=== PATIENT | female | born 2000 | race Two or more races ===

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

== ENCOUNTER 2021-05-05 04:22 | Emergency (ER) | payer MEDICAID ==
[~2021-05-05] VITALS: Ht 160 cm; Wt 61.2 kg
[2021-05-05 05:09] VITALS: BP 105/62
[2021-05-05] MEDS ORDERED: cefTRIAXone SOD 1,000 MG VL IM ONE (05:30)
[2021-05-05] MEDS ORDERED: LIDOCAINE VISCOUS 2% 15ML UD PO ONE (05:30)
[2021-05-05] MEDS ORDERED: ACETAMINOPHEN 500 MG TAB PO ONE (05:30)
[2021-05-05] MEDS ORDERED: IBUPROFEN 800 MG TAB PO ONE (05:30)
== END 2021-05-05 05:44 | disposition home or self-care (01) ==
LOC: ER 04:22
DX: J03.80 Acute tonsillitis due to other specified organisms (principal); B96.89 Other specified bacterial agents as the cause of diseases classified elsewhere; R05 Cough
CPT/HCPCS: 96372; 99284; J0696

== ENCOUNTER 2021-11-17 21:59 | Emergency (ER) | payer MEDICAID ==
[~2021-11-17] VITALS: Ht 162.6 cm; Wt 61.2 kg
[2021-11-17 21:59] VITALS: BP 112/69
[2021-11-17] MEDS ORDERED: IPRATROPIUM BROM 0.5 MG/2.5ML INH SOL NEB ONE (22:45)
[2021-11-17] MEDS ORDERED: ALBUTEROL SULF 2.5 MG/0.5ML(0.5%) NEB SOLN NEB ONE (22:45)
== END 2021-11-18 02:08 | disposition left against medical advice (07) ==
LOC: ER 22:02
DX: J45.909 Unspecified asthma, uncomplicated (principal); Z53.21 Procedure and treatment not carried out due to patient leaving prior to being seen by health care provider
CPT/HCPCS: 71045; 94644; J7644

== ENCOUNTER 2022-02-11 19:01 | Emergency (ER) | payer MEDICAID ==
[~2022-02-11] VITALS: Ht 160 cm; Wt 62.1 kg
[2022-02-11 19:01] VITALS: BP 98/67
== END 2022-02-11 20:57 | disposition left against medical advice (07) ==
LOC: ER 19:01
DX: R07.9 Chest pain, unspecified (principal); Z53.21 Procedure and treatment not carried out due to patient leaving prior to being seen by health care provider
CPT/HCPCS: 93005

== ENCOUNTER 2025-05-26 04:06 | Emergency (ER) | payer MEDICAID ==
[~2025-05-26] VITALS: Ht 162.6 cm; Wt 50.0 kg
[2025-05-26 04:21] VITALS: BP 95/56; PULSE 98; TEMP 98.2
[2025-05-26] MEDS ORDERED: ALBUTEROL SULF 2.5 MG/0.5ML(0.5%) NEB SOLN NEB ONE (04:30)
--- NOTE | 2025-05-26 04:33 | ED.PDOC ---
SOB-HPI HPI Comments 24-year-old female who came to ER for shortness a breath. History of asthma. Past 2 days patient has been having cough, congestion, in progressively worsening shortness of breath. Inhalers taken offered slight relief. Upon arrival, patient wheezing, saturating 91% on room air. REVIEW OF SYSTEMS: No fever, no chills, or fatigue HEENT: No sore throat, no earache, no congestion, no neck pain. Cardiac: No chest pain. No palpitations. Lungs: (+) shortness of breath, (+) cough. GI: No nausea, no vomiting, no diarrhea, no constipation, no abdominal pain : No dysuria, frequency, or urgency. No hematuria. Musculoskeletal: No joint pain , no joint swelling, no extremity edema. Skin: No rash, no itching. Neuro: No headache, no dizziness, no weakness PHYSICAL EXAM: General: Awake, alert and oriented. No acute distress. Skin: Skin in warm, dry and intact without rashes or lesions. HEENT: The head is normocephalic and atraumatic. Conjunctivae are clear without exudates or hemorrhage. Sclera is non-icteric. Neck: Normal range of motion. No JVD. Cardiac: Regular rate Respiratory: No signs of respiratory distress. No Stridor. Expiratory wheezes bilaterally. Extremities: Upper and lower extremities are atraumatic in appearance without deformity. Neurological: The patient is awake, alert and oriented to person, place, and time with normal speech. Speech is clear. There is no facial asymmetry. Psychiatric: Appropriate mood and affect. Good judgement and insight. 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 Was a procedure done?: No Differential Dx Differential Diagnosis: Asthma, Bronchitis, Pneumonia, Respiratory Distress X-Ray, Labs, Meds, VS Vital Signs Date Time Temp Pulse Resp B/P (MAP) Pulse Ox O2 Delivery O2 Flow Rate FiO2 05/26/25 05:09 96 05/26/25 04:49 22 95 Nasal Cannula* 2 28 05/26/25 04:21 98.2 98 20 95/56 98 98.2 05/26/25 04:06 Room Air 05/26/25 04:06 98 20 95/56 (69) 95 Current Medications Medications (Trade) Dose Ordered Sig/Mukul Route Start Time Stop Time Status Last Admin Ipratropium Mccune (Atrovent Medneb) 0.5 mg ONCE ONCE NEB 05/26/25 04:30 05/26/25 04:31 DC 05/26/25 04:49 Dexamethasone Sodium Phosphate (Decadron Injection) 10 mg ONCE ONCE IM 05/26/25 04:30 05/26/25 04:31 DC 05/26/25 05:06 Albuterol (Ventolin Medneb) 10 mg ONCE ONCE NEB 05/26/25 04:30 05/26/25 04:31 DC 05/26/25 04:49 PATIENT: TATA TAPIA ACCT: [id number] UNIT: [id number] : 2000 LOC: ER ROOM / BED: / AGE / SEX: 24 / F ADM STATUS: REG ER SERVICE [id number] ORDERING PHYSICIAN: MELODY BUSTOS MD PROCEDURE(s): CXR1 - CHEST XRAY 1 VIEW REASON: Shortness of breath ORDER NUMBER(s): [id number], ACCESSION NUMBER(s): [id number] CHEST RADIOGRAPH Indication: Shortness of breath Technique: Single frontal view of the chest was obtained COMPARISON: CHEST PORTABLE on DOS: 11/17/21 FINDINGS: Lines and Tubes: None Lungs: Clear Pleura: No effusion. No pneumothorax. Cardiomediastinal contours: Unremarkable Bones: Unremarkable IMPRESSION: 1. No acute disease. ATED BY: GENE PRETTY MD DICTATED DATE/TIME: 05/26/25514 SIGNED BY: GENE PRETTY MD SIGNED DATE/TIME: 05/26/25514 CC: Time of 1ST Reevaluation: 04:28 Reevaluation 1ST: Unchanged Patient Education/Counseling: Need For Follow Up Family Education/Counseling: No Family Present SEPSIS Sepsis Screen Physician Orders Chest Xray 1 View (05/26/25 04:17) Vital Signs Date Time Temp Pulse Resp B/P (MAP) Pulse Ox O2 Delivery O2 Flow Rate FiO2 05/26/25 05:09 96 05/26/25 04:49 22 95 Nasal Cannula* 2 28 05/26/25 04:21 98.2 98 20 95/56 98 98.2 05/26/25 04:06 Room Air 05/26/25 04:06 98 20 95/56 (69) 95 Departure 1 Departure Time of Disposition: 05:20 Impression: Primary Impression: Shortness of breath Additional Impression: Asthma exacerbation Disposition: HOME / SELF CARE / HOMELESS Condition: Stable Additional Instructions: ED DISCHARGE INSTRUCTIONS Instructions: Please read all instructions provided in this packet carefully. Although you have been discharged from the Emergency Department, this does not mean that you have a "clean bill of health". No definitive diagnosis for your symptoms has been made today. It is possible that you are in the process of developing a serious illness. This is why you must return to the ED without fail if any new or worsening symptoms (especially if your symptoms include chest pain, trouble breathing, abdominal pain, fever, headache, confusion, trouble seeing, or trouble walking) It is also very important that you see a primary care provider (PCP) within the next 3-5 days to follow up. If you are unable to get an appointment, return to the ED for re-evaluation. SHORTNESS OF BREATH EDUCATION Shortness of breath has many causes. Sometimes conditions such as anxiety can lead to shortness of breath. Some people get mild shortness of breath when they exercise. Trouble breathing also can be a symptom of a serious problem, such as asthma, lung disease, emphysema, heart problems, and pneumonia. If your shortness of breath continues, you may need tests and treatment. Watch for any changes in your breathing and other symptoms. Follow-up care is a dumas part of your treatment and safety. Be sure to make and go to all appointments, and call your doctor if you are having problems. It's also a good idea to know your test results and keep a list of the medicines you take. How can you care for yourself at home? Do not smoke or allow others to smoke around you. If you need help quitting, talk to your doctor about stop-smoking programs and medicines. These can increase your chances of quitting for good. Get plenty of rest and sleep. Take your medicines exactly as prescribed. Call your doctor if you think you are having a problem with your medicine. Find healthy ways to deal with stress. Exercise daily. Get plenty of sleep. Eat regularly and well. When should you call for help? Call 911 anytime you think you may need emergency care. For example, call if: You have severe shortness of breath. You have symptoms of a heart attack. These may include: Chest pain or pressure, or a strange feeling in the chest. Sweating. Shortness of breath. Nausea or vomiting. Pain, pressure, or a strange feeling in the back, neck, jaw, or upper belly or in one or both shoulders or arms. Lightheadedness or sudden weakness. A fast or irregular heartbeat. After you call 911, the strip machine operator may tell you to chew 1 adult-strength or 2 to 4 low-dose aspirin. Wait for an ambulance. Do not try to drive yourself. Call your doctor now or seek immediate medical care if: Your shortness of breath gets worse or you start to wheeze. Wheezing is a high- pitched sound when you breathe. You wake up at night out of breath or have to prop your head up on several pillows to breathe. You are short of breath after only light activity or while at rest. Watch closely for changes in your health, and be sure to contact your doctor if: You do not get better over the next 1 to 2 days. Credits for Shortness of Breath: Care Instructions Current as of: May 16, 2024 Author: [employer]! Staff e-Prescriptions Albuterol Sulfate (Albuterol Sulfate) 0.083 % Neb 1 VIAL NEB Q4HPRN PRN for 5 Days, #5 VIAL Prov: MELODY BUSTOS MD 05/26/25 Respiratory Therapy Supplies (Full Kit Nebulizer Set) Set Mis KIT XX ONCE, #1 Prov: MELODY BUSTOS MD 05/26/25 Prednisone (Prednisone) 20 Mg Tab 20 MG PO DAILY for 4 Days, #4 MG Prov: MELODY BUSTOS MD 05/26/25 Comments MDM: 24-year-old female with asthma exacerbation. Patient's symptoms significantly improved with treatment in the ED. she is felt stable for discharge home. Patient well-appearing, nontoxic. Advised prompt follow-up with PCP, return to the ED with any new, worsening or concerning symptoms. I reviewed the following notes from the pt's past medical encounters: N/A The following tests were ordered, and results were reviewed by me: (See diagnostic results section) The following test were independently interpreted by me: N/A Additional information was gathered from interviewing the following independent historians: N/A I reviewed and agreed with the following test results read by other providers: Chest x-ray I discussed treatments and results with patient Decision regarding hospitalization or escalation of hospital level of care: Risks and benefits of admission for further treatment of patient's condition was considered however due to patient's stable condition patient will be discharged to follow up closely or return to care for worsening of condition or inability to follow up. Critical Care Note Critical Care Time?: Yes (35 min-critical care time only) Critical care comment: Shortness a breath, hypoxia Stability Stability form required: No Heart Score Heart Score: Heart Score Response (Comments) Value History N/A 0 EKG N/A 0 Age N/A 0 Risk Factors N/A 0 Troponin N/A 0 Total 0 I personally scribed for MELODY BUSTOS MD ([email or web address]) on 05/26/25 at 04:33. Electronically submitted by Harman Parr ([email or web address]). MELODY BUSTOS MD May 26, 2025 04:33
[2025-05-26 04:49] VITALS: RESP 22
[2025-05-26] MEDS: IPRATROPIUM BROM 0.5 MG/2.5ML INH SOL NEB ONE (04:49)
[2025-05-26] MEDS: ALBUTEROL SULF 2.5 MG/0.5ML(0.5%) NEB SOLN NEB ONE (04:49)
[2025-05-26 05:09] VITALS: O2SAT 96
--- NOTE | 2025-05-26 05:17 | DVH ---
CHEST RADIOGRAPH Indication: Shortness of breath Technique: Single frontal view of the chest was obtained COMPARISON: CHEST PORTABLE on DOS: 11/17/21 FINDINGS: Lines and Tubes: None Lungs: Clear Pleura: No effusion. No pneumothorax. Cardiomediastinal contours: Unremarkable Bones: Unremarkable IMPRESSION: 1. No acute disease.
[2025-05-26] MEDS ORDERED: ALBU0.084 NEB (05:22)
[2025-05-26] MEDS ORDERED: RESPMIS2 XX (05:22)
[2025-05-26] MEDS ORDERED: PRED20TA2 PO (05:22)
== END 2025-05-26 05:30 | disposition home or self-care (01) ==
LOC: ER 04:06
DX: J45.901 Unspecified asthma with (acute) exacerbation (principal); R06.02 Shortness of breath
CPT/HCPCS: 71045; 94640; 96372; 99283; J1100